=== PATIENT | female | born 1940 | race Caucasian/White ===

== ENCOUNTER 2016-06-29 13:35 | Emergency (ER) | payer BC, MEDICARE ==
[2016-06-29 14:09] VITALS: BP 128/60
--- NOTE | 2016-06-29 14:54 | UC ---
Lower Extremity/Ankle HPI - HPI Summary HPI Summary: right foot pain after twisted it last night---did not fall - History of Current Complaint Chief Complaint: UCLowerExtremity Stated Complaint: FOOT INJURY Time Seen by Provider: 06/29/16 14:41 Hx Obtained From: Patient ?: No Onset/Duration: Sudden Onset, Lasting Days - 1, Still Present Severity Initially: Mild Severity Currently: Mild Pain Intensity: 3 Pain Scale Used: 0-10 Numeric Aggravating Factor(s): Standing, Ambulation Alleviating Factor(s): Rest, Elevation Able to Bear Weight: Yes - Allergies/Home Medications Allergies/Adverse Reactions: Allergies Allergy/AdvReac Type Severity Reaction Status Date / Time Fosinopril [From Monopril] Allergy Swelling Verified 06/14/16 11:27 Of Face,Lips,& Throat Latex Allergy SWOLLEN Verified 06/14/16 11:27 LIPS, RASH PMH/Surg Hx/FS Hx/Imm Hx Previously Healthy: No Endocrine History Of: Denies: Diabetes Cardiovascular History Of: Reports: Hypertension - TAKING B/P AT HOME TODAY WAS 210/96 GI/ History Of: Denies: Renal Disease - Surgical History Surgical History: Yes Surgery Procedure, Year, and Place: 1984 HYSTERECTOMY, [facility]. TEETH EXTRACTION, Bilateral stent renal artery - Family History Known Family History: Positive: Hypertension - Social History Occupation: Retired Lives: With Family Alcohol Use: Occasionally Substance Use Type: None Smoking Status (MU): Current Every Day Smoker Type: Cigarettes Amount Used/How Often: 1 PPD Length of Time of Smoking/Using Tobacco: 20 years Have You Smoked in the Last Year: Yes Household Exposure Type: Cigarettes Cessation Counseling: Counseled 3+Min - 10 Min Review of Systems Constitutional: Negative Skin: Negative Eyes: Negative ENT: Negative Respiratory: Negative Cardiovascular: Negative Gastrointestinal: Negative Genitourinary: Negative Motor: Negative Neurovascular: Negative Musculoskeletal: Arthralgia - lateral foot pain Neurological: Negative Psychological: Negative All Other Systems Reviewed And Are Negative: Yes Physical Exam Triage Information Reviewed: Yes Appearance: Well-Appearing, Pain Distress - mild, Thin Vital Signs: Initial Vital Signs Temp 97.3 F 06/29/16 14:03 Pulse 89 06/29/16 14:03 Resp 16 06/29/16 14:03 BP 128/60 06/29/16 14:03 Pulse Ox 99 01/14/17 14:03 Vital Signs Reviewed: Yes Eye Exam: Normal Eyes: Positive: Conjunctiva Clear ENT Exam: Normal ENT: Positive: Normal ENT inspection, Hearing grossly normal. Negative: Nasal congestion, Nasal drainage, Trismus, Muffled/hoarse voice Neck exam: Normal Neck: Positive: Supple, Nontender Respiratory Exam: Normal Respiratory: Positive: Chest non-tender, No respiratory distress, No accessory muscle use Cardiovascular Exam: Normal Cardiovascular: Positive: RRR, Pulses Normal, Brisk Capillary Refill Musculoskeletal Exam: Normal Musculoskeletal: Positive: Strength Intact, ROM Intact, No Edema Neurological Exam: Normal Neurological: Positive: Alert, Muscle Tone Normal Psychological Exam: Normal Skin Exam: Normal Diagnostics - Radiology No standard instances Xray Interpretation: Positive (See Comments) - fracture proximal fifth metatarsal Radiology Interpretation Completed By: ED Physician, Radiologist Lower Extremity Course/Dx - Course Course Of Treatment: non-weight bearing, crutches, posterior splint, ibuprofen, call Friday for f/u appoinment with ortho - Differential Dx/Diagnosis Differential Diagnosis/HQI/PQRI: Contusion, Fracture (Closed), Sprain, Strain Provider Diagnoses: proximal fifth metatarsal fracture, nicotine dependant Discharge - Discharge Plan Condition: Stable Disposition: HOME Patient Education Materials: Ibuprofen (By mouth), How to Stop Smoking (ED), Crutch Instructions (ED), Foot Fracture in Adults (ED), Cigarette Smoking and Your Health (GEN), How to Choose and Use a Walker (GEN), RICE Therapy (ED) Referrals: Nimisha Zavala MD [Primary Care Provider] - Rommel Lockett MD [Medical Doctor] - 2 Days
--- NOTE | 2016-06-29 15:22 | RAD ---
INDICATION: Right foot injury COMPARISON: None TECHNIQUE: AP, lateral, and oblique views were obtained. FINDINGS: There is a minimally distracted, transverse, intra-articular fracture involving the base of fifth metatarsal. There are no other fractures or significant focal bony findings. There is mild soft tissue swelling about the fracture site. IMPRESSION: FIFTH METATARSAL FRACTURE.
== END 2016-06-29 16:00 | disposition home or self-care (01) ==
LOC: UCEAST 13:35
DX: S92.351A Displaced fracture of fifth metatarsal bone, right foot, initial encounter for closed fracture (principal); W50.2XXA Accidental twist by another person, initial encounter; Y93.9 Activity, unspecified; Y92.9 Unspecified place or not applicable; I10 Essential (primary) hypertension; F17.210 Nicotine dependence, cigarettes, uncomplicated
CPT/HCPCS: 99213; G0463

== ENCOUNTER 2017-04-28 11:40 | Day surgery (SDC) | payer MEDICARE ==
[~2017-04-28 11:40] MED LIST: Acetaminophen TAB* 325 MG PO PRN; Buffered Lidocaine 0.9% SYRIN* 5 ML/SYR SYRINGE INTRADERM ONE
[2017-04-28] MEDS ORDERED: Lidocaine 1% MPF* 2 ML VIAL ONE (11:53)
[2017-04-28] MEDS ORDERED: Tropicamide 1% OPTH.SOL* BTL ONE (11:53)
[2017-04-28] MEDS ORDERED: Flurbiprofen 0.03% OPTH.SOL* 2.5 ML BTL ONE (11:53)
[2017-04-28] MEDS ORDERED: acetaZOLAMIDE TAB* 250 MG ONE (11:53)
[2017-04-28] MEDS ORDERED: Phenylephrine 2.5% OPTH.SOL* 2 ML BTL ONE (11:53)
[2017-04-28] MEDS ORDERED: Tetracaine 0.5% OPTH.SOL 4 ML* 1 DROP BTL ONE (11:53)
[2017-04-28] MEDS ORDERED: Buffered Lidocaine 0.9% SYRIN* 5 ML/SYR SYRINGE ONE (11:53)
[2017-04-28] MEDS ORDERED: Povidone Iodine 5% OPTH* 30 ML BTL ONE (11:53)
[2017-04-28] MEDS ORDERED: Cyclopentolate 1% OPTH.SOL* 2 ML BTL ONE (11:53)
[2017-04-28] MEDS ORDERED: Neomycin/Polymy/Dex OPHTH.OIN* 3.5 GM ONE (11:53)
[2017-04-28] MEDS ORDERED: Midazolam* 1 MG/ML 2 ML VIAL (2 MG) ONE (12:23)
[2017-04-28 12:52] VITALS: BP 144/62
--- NOTE | 2017-04-29 03:22 | OP ---
DATE OF OPERATION: 04/28/17 - [facility] DATE OF : 42 SURGEON: Salinas Palafox MD. ANESTHESIOLOGIST: Michael Uribe MD ANESTHESIA: Monitored anesthesia care. PRE-OP DIAGNOSIS: Cataract, left eye. POST-OP DIAGNOSIS: Cataract, left eye. OPERATIVE PROCEDURE: Cataract surgery to the left eye. IMPLANTS: SN60WF 22.0 diopter lens, left eye. COMPLICATIONS: None. DESCRIPTION OF PROCEDURE: The patient was given phenylephrine 2.5% and cyclopentolate 1% eye drops to the operative eye in the preoperative area. The patient was brought to the operating room where a time-out was taken to identify the correct patient, side and site of surgery. The patient's left eye was prepped and draped in the usual sterile fashion with 5% Betadine. A second time-out was taken to verify the correct patient, side and site of surgery, and correct lens selection. A lid speculum was placed to the left eye. A 1-mm paracentesis blade was used to make a clear corneal incision in the inferotemporal position. Preservative-free 1% lidocaine was injected into the anterior chamber. DisCoVisc was then injected into the anterior chamber. A 2.75-mm keratome blade was used to make a triplanar incision at the superotemporal position. A cystotome initiated a capsulorrhexis, which was completed with Utrata forceps in a continuous and curvilinear manner. Hydrodissection of the lens was performed with BSS on a cannula. The lens could be spun in the capsular bag. The phacoemulsification handpiece was used with a [id number] technique to remove the nucleus in its entirety. The I/A handpiece then removed the residual cortical lens material. DisCoVisc was injected to inflate the capsular bag. The planned SN60WF 22.0 diopter lens was injected into the capsular bag. The residual DisCoVisc was removed from the eye with the I/A handpiece. The corneal incisions were hydrated and no leaks occurred at physiologic pressure around 20 mmHg per palpation. The lid speculum was removed and drapes removed. Maxitrol ointment was placed to the surface of the operative eye. An adhesive patch and shield was placed on the operative eye. The patient was taken to the postoperative area in stable condition. [id number]/[facility] #: [id number] [facility] HOSPITALHelio
== END 2017-04-28 12:59 | disposition home or self-care (01) ==
LOC: EDBD → OREAST 11:40
PROVIDERS: ATTEND Student in an Organized Health Care Education/Training Program
DX: E11.36 Type 2 diabetes mellitus with diabetic cataract (principal); H25.12 Age-related nuclear cataract, left eye; Z96.1 Presence of intraocular lens; F17.200 Nicotine dependence, unspecified, uncomplicated; I10 Essential (primary) hypertension; E78.00 Pure hypercholesterolemia, unspecified; Z79.82 Long term (current) use of aspirin; I65.23 Occlusion and stenosis of bilateral carotid arteries; J30.2 Other seasonal allergic rhinitis; T56.5X1A Toxic effect of zinc and its compounds, accidental (unintentional), initial encounter; R42 Dizziness and giddiness; I25.10 Atherosclerotic heart disease of native coronary artery without angina pectoris; E55.9 Vitamin D deficiency, unspecified; Z88.8 Allergy status to other drugs, medicaments and biological substances
CPT/HCPCS: A9270-GY; J2250; V2632

== ENCOUNTER 2020-03-14 00:43 | Inpatient (IN) ==
[2020-03-14 01:28] LABS: ABS Basophils 0.1 10^3/ul (0-0.2); ABS Eosinophils 0.2 10^3/ul (0-0.6); ABS Lymphocytes 1.3 10^3/ul (1.0-4.8); ABS Monocytes 0.9 10^3/ul (0-0.8); Eosinophil % 2.1 %; Hematocrit 42 % (35-47); Hemoglobin 14.8 g/dL (12.0-16.0); Mean Corpuscular HGB Conc 35 g/dL (31-36); Mean Corpuscular Hemoglobin 32 pg (27-31); Mean Corpuscular Volume 91 fL (80-97); Mean Platelet Volume 7.1 fL (7.4-10.4); Platelet Count 253 10^3/uL (150-450); Red Blood Count 4.65 10^6 /uL (3.70-4.87); Red Cell Distribution Width 15 % (10-15); White Blood Count 9.4 10^3/uL (3.5-10.8)
[2020-03-14 01:45] LABS: ALT 11 U/L (7-52); Albumin 3.5 g/dL (3.2-5.2); Albumin/Globulin Ratio 1.3 (1-3); Alkaline Phosphatase 109 U/L (34-104); BUN/Creatinine Ratio 16.7 (8-20); Blood Urea Nitrogen 11 mg/dL (6-24); C Reactive Protein 7.03 mg/L (<8.01); CO2 Carbon Dioxide 22 mmol/L (22-32); Calcium 7.4 mg/dL (8.6-10.3); Chloride 107 mmol/L (101-111); EGFR African American 104.8 (>60); EGFR Non-African American 86.6 (>60); Globulin 2.6 g/dL (2-4); Glucose 105 mg/dL (70-100); Sodium 137 mmol/L (135-145); Total Protein 6.1 g/dL (6.4-8.9)
[2020-03-14 01:49] LABS: Troponin I 0.06 ng/mL (<0.03)
[2020-03-14] MEDS ORDERED: Furosemide 40 mg/4 ml IV VIAL IV ONE (01:50)
[2020-03-14 02:07] LABS: AST 17 U/L (13-39); Anion Gap 8 mmol/L (2-11); Magnesium 1.7 mg/dL (1.9-2.7); Potassium 3.9 mmol/L (3.5-5.0)
[2020-03-14 02:26] LABS: TSH Ultra Thyroid Stim Horm 1.48 mcIU/mL (0.34-5.60)
[2020-03-14] MEDS ORDERED: Albuterol/Ipratropium NEB.SOL (2.5/0.5 MG) 3 ML NEB.SOLN INH PRN (03:02)
[2020-03-14] MEDS ORDERED: Magnesium Sulfate 2 gm BAG 2 GM/50 ML BAG IVPB ONE ×2 (03:41→06:19)
[2020-03-14] MEDS ORDERED: Enoxaparin 30 MG/0.3 ML SYR SUBCUT SCH (04:00)
[2020-03-14 06:02] LABS: Anion Gap 8 mmol/L (2-11); BUN/Creatinine Ratio 14.8 (8-20); Blood Urea Nitrogen 12 mg/dL (6-24); CO2 Carbon Dioxide 28 mmol/L (22-32); Chloride 103 mmol/L (101-111); EGFR African American 82.7 (>60); EGFR Non-African American 68.4 (>60); Glucose 109 mg/dL (70-100); Magnesium 1.7 mg/dL (1.9-2.7); Potassium 3.3 mmol/L (3.5-5.0); Sodium 139 mmol/L (135-145)
[2020-03-14 06:10] LABS: Urine Appearance Clear; Urine Bilirubin Negative (Negative); Urine Blood Negative (Negative); Urine Color Colorless; Urine Glucose Negative (Negative); Urine Ketones Negative (Negative); Urine Nitrite Negative (Negative); Urine Protein Negative (Negative); Urine Specific Gravity 1.003 (1.010-1.030); Urine Urobilinogen Negative (Negative)
[2020-03-14 06:19] LABS: Troponin I 0.08 ng/mL (<0.03)
[2020-03-14] MEDS ORDERED: Potassium Chlor 20 meq TAB.ER PO ONE (06:19)
[2020-03-14] MEDS ORDERED: Labetalol IV 5 MG/ML 20 ml VIAL IV PUSH ONE (08:43)
[2020-03-14 09:26] LABS: Troponin I 0.07 ng/mL (<0.03)
[2020-03-14 12:59] LABS: INR 1.06 (0.82-1.09)
[2020-03-15 06:36] LABS: BUN/Creatinine Ratio 21.4 (8-20); Calcium 8.7 mg/dL (8.6-10.3); EGFR African American 62.7 (>60); EGFR Non-African American 51.8 (>60); Magnesium 2.6 mg/dL (1.9-2.7); Potassium 3.7 mmol/L (3.5-5.0)
[2020-03-15] MEDS: Enoxaparin 30 MG/0.3 ML SYR SUBCUT SCH ×2 (09:14→12:45)
[2020-03-15] MEDS ORDERED: Furosemide 20 mg/2 ml IV VIAL IV SLOW PU ONE (09:37)
[2020-03-15] MEDS ORDERED: Potassium Chlor 20 meq TAB.ER PO ONE (09:39)
[2020-03-15] MEDS ORDERED: NS 0.9% w/ 20 Meq KCL 1000 ml 1,000 ML IV SCH (20:00)
[2020-03-15] MEDS: SPIRIVA Respimat (tiotropium) 2.5 mcg/inh Inhaler INH SCH (20:50)
[2020-03-16] MEDS: SPIRIVA Respimat (tiotropium) 2.5 mcg/inh Inhaler INH SCH (08:00)
[2020-03-16] MEDS: Nicotine PATCH 21 MG/24 HR PATCH TRANSDERM SCH (14:59)
[2020-03-16] MEDS: Enoxaparin 30 MG/0.3 ML SYR SUBCUT SCH (15:00)
[2020-03-17 06:48] LABS: BUN/Creatinine Ratio 30.9 (8-20); Calcium 8.9 mg/dL (8.6-10.3); EGFR African American 67.2 (>60); EGFR Non-African American 55.5 (>60)
[2020-03-17] MEDS: SPIRIVA Respimat (tiotropium) 2.5 mcg/inh Inhaler INH SCH (08:05)
[2020-03-17] MEDS: Enoxaparin 30 MG/0.3 ML SYR SUBCUT SCH (08:22)
[2020-03-17] MEDS: Nicotine PATCH 21 MG/24 HR PATCH TRANSDERM SCH (08:32)
[2020-03-17 12:17] VITALS: BP 107/61
== END 2020-03-17 16:40 | disposition home health service (06) | DRG 291 ==
LOC: ED 00:43 → MEDTELE 03:02
PROVIDERS: ADMIT Internal Medicine; ATTEND Internal Medicine